=== PATIENT | male | born 2005 | race Two or more races ===

== ENCOUNTER 2024-11-08 22:41 | Emergency (ER) | payer OTHER ==
[~2024-11-08] VITALS: Ht 177.8 cm; Wt 65.8 kg
[2024-11-08] MEDS ORDERED: LIPITOR40 M1 (23:18)
[2024-11-09] MEDS ORDERED: METHYLPREDNISOLONE SOD SUCC 125 MG VIAL IV STA (01:01)
[2024-11-09] MEDS ORDERED: DIPHENHYDRAMINE HCL 50 MG/ML VIAL 1ML IV STA (01:01)
[2024-11-09] MEDS ORDERED: FAMOTIDINE/PF 20 MG/2 ML VIAL IV PUSH STA (01:02)
[2024-11-09] MEDS ORDERED: EPINEPHRINE HCL/PF 1 MG/ML AMPUL SUBCUTANEO STA (01:02)
[2024-11-09] MEDS ORDERED: EPINEPHRINE HCL/PF 1 MG/ML AMPUL ONE (01:18)
[2024-11-09] MEDS ORDERED: METHYLPREDNISOLONE SOD SUCC 125 MG VIAL ONE (01:18)
[2024-11-09] MEDS ORDERED: DIPHENHYDRAMINE HCL 50 MG/ML VIAL 1ML ONE (01:18)
[2024-11-09] MEDS ORDERED: FAMOTIDINE/PF 20 MG/2 ML VIAL ONE (01:18)
[2024-11-09] MEDS ORDERED: BENADRYL25 MG PO (02:31)
[2024-11-09] MEDS ORDERED: MEDROL8 MG PO (02:31)
[2024-11-09] MEDS ORDERED: PEPCID40 MG PO (02:32)
== END 2024-11-09 02:50 ==
LOC: ER 22:51
DX: L50.9 Urticaria, unspecified (principal)